=== PATIENT | female | born 1960 | race Caucasian/White ===

== ENCOUNTER 2019-06-30 12:47 | Emergency (ER) | payer MEDICAID, OTHER ==
[~2019-06-30] VITALS: Ht 165.1 cm; Wt 55.5 kg
[2019-06-30] MEDS ORDERED: HYDROcodone/acetaminophen 5mg/325mg tablet PO ONE (14:30)
[2019-06-30] MEDS ORDERED: epiNEPHrine inj 0.3 MG in BUPIVAcaine 0.5% inj/PF 29.7 ML SQ ONE (15:50)
[2019-06-30] MEDS ORDERED: MIDAZolam 5mg/ml 2ml vial IV ONE ×2 (15:50→16:05)
[2019-06-30] MEDS ORDERED: fentaNYL/PF 50MCG/1 ML 2ML syringe IV ONE ×2 (15:50→16:05)
[2019-06-30] MEDS ORDERED: BUPIVAcaine 0.5% inj/PF 30 ml vial IJ ONE (15:55)
[2019-06-30] MEDS ORDERED: HYDR-3965 PO (16:27)
[2019-06-30 16:54] VITALS: BP 160/107
== END 2019-06-30 17:09 | disposition home or self-care (01) ==
LOC: ER 12:48
DX: S52.592A Other fractures of lower end of left radius, initial encounter for closed fracture (principal); S50.312A Abrasion of left elbow, initial encounter; W22.8XXA Striking against or struck by other objects, initial encounter; Y93.89 Activity, other specified; Y92.89 Other specified places as the place of occurrence of the external cause; Y99.9 Unspecified external cause status
CPT/HCPCS: 25605; 73090; 73110; 99152; 99153; 99285; J2250; J3010

== ENCOUNTER 2019-07-16 13:12 | Day surgery (SDC) | payer SELFPAY ==
[2019-07-16] VITALS (8 sets, daily range): BP systolic 133–153; BP diastolic 81–100
[~2019-07-16] VITALS: Ht 165.1 cm; Wt 56.1 kg
[~2019-07-16 13:12] MED LIST: HYDR-3965 PO; famotidine 20mg tablet PO ONE
[2019-07-16] MEDS ORDERED: cefazolin/dext.iso 2gm/100 ML IV ONE (13:47)
[2019-07-16] MEDS ORDERED: cefazolin/dext.iso 2gm/50ml 100 ML IV ONE (13:51)
[2019-07-16] MEDS ORDERED: cefazolin/dext.iso 2gm/50ml 50 ML IV ONE (13:51)
[2019-07-16] MEDS ORDERED: BUPIVAcaine/PF 2.5 mg/ml (0.25%) 30ml vial ONE ×2 (14:19→16:03)
[2019-07-16] MEDS ORDERED: IBUP-1984 PO (14:35)
[2019-07-16] MEDS ORDERED: HYDR-4383 PO (15:24)
[2019-07-16 15:27] LABS: BASOPHILS % (AUTO) 0.6 % (0-1); EOSINOPHILS # (AUTO) 0.1 X10'3 (0-0.9); EOSINOPHILS % (AUTO) 1.9 % (0-6); HEMATOCRIT 35.5 % (35.0-45.0); HEMOGLOBIN 12.1 g/dl (12.0-16.0); LYMPHOCYTES # (AUTO) 2.3 X10'3 (1.1-4.8); MEAN CORPUSCULAR HEMOGLOBIN 33.5 PG (27.0-31.0); MEAN CORPUSCULAR VOLUME 98.5 FL (78-98); MEAN PLATELET VOLUME 7.2 FL (7.4-10.4); MONOCYTES # (AUTO) 0.7 X10'3 (0-0.9); MONOCYTES % (AUTO) 10.5 % (2-12); NEUTROPHILS # (AUTO) 3.2 X10'3 (1.8-7.7); PLATELET COUNT 327 X10'3 (140-440); WHITE BLOOD COUNT 6.3 X10'3 (4.5-11.0)
[2019-07-16 15:30] LABS: ALBUMIN 3.9 G/DL (3.4-5.0); ALBUMIN/GLOBULIN RATIO 0.9 (1.1-1.5); ALKALINE PHOSPHATASE 73 IU/L (46-116); BLOOD UREA NITROGEN 14 MG/DL (7-18); BUN/CREATININE RATIO 16.9 (6.6-38.0); CALCIUM 10.1 MG/DL (8.5-10.1); CHLORIDE 103 MMOL/L (99-107); CREATININE 0.83 MG/DL (0.40-0.90); PRE OP ALT 25 U/L (30-65); PRE OP ANION GAP 11 (8-16); PRE OP AST 27 U/L (10-37); PRE OP BILIRUB, TOTAL 0.6 MG/DL (0.0-1.0); PRE OP GLUCOSE 84 MG/DL (70-104); PRE OP POTASSIUM 4.4 MMOL/L (3.4-5.1); PRE OP SODIUM 140 MMOL/L (135-145); TOTAL CARBON DIOXIDE 25.6 MMOL/L (24-32); TOTAL PROTEIN 8.3 G/DL (6.4-8.2); eGFR 71 ML/MIN
[2019-07-16] MEDS ORDERED: ondansetron/PF 4mg/2ml inj IV PRN (15:35)
[2019-07-16] MEDS ORDERED: morphine 4 MG/ML inj SYRINge IV PRN ×2 (15:35)
[2019-07-16] MEDS ORDERED: proCHLORperazine 10 MG/2 ml inj IV PRN (15:35)
[2019-07-16] MEDS ORDERED: ringers solution, lacted 1,000 ML IV SCH (15:35)
[2019-07-16] MEDS ORDERED: meperidine/PF 25mg/ml syringe IV PRN ×3 (15:35)
[2019-07-16 15:44] LABS: PARTIAL THROMBOPLASTIN TIME 25 SECONDS (22-32)
[2019-07-16] MEDS ORDERED: midazolam 2 mg/2 ml injection ONE (16:05)
[2019-07-16] MEDS ORDERED: ROPIVAcaine 0.5% (5mg/ml) 30ml vial ONE (16:05)
[2019-07-16] MEDS ORDERED: fentaNYL/PF 50MCG/1 ML 2ML syringe ONE (16:05)
[2019-07-16] MEDS ORDERED: ketorolac trometh. 30mg/ml inj. ONE (18:18)
[2019-07-16] MEDS ORDERED: ondansetron/PF 4mg/2ml inj ONE (18:24)
--- NOTE | 2019-07-16 18:30 | NUR ---
Received from OR via BED , accompanied by Anesthesiologist DR ROSAS and report given by Anesthesiolgist. PATIENT A&OX4, DENIES PAIN, V/S WNL, NEUROVASCULAR CHECKS INTACT, 20G RUE, LEFT KNEE DRESSING CDI WITH BELDSOE BRACE ON CDI, LEFT ARM SPLINT DRESSING CDI WITH SLING CDI
--- NOTE | 2019-07-16 19:20 | NUR ---
PATIENT A&OX4, DENIES PAIN, V/S WNL, NEUROVASCULAR CHECKS INTACT, 20G RUE D/C, LEFT KNEE DRESSING CDI WITH BELDSOE BRACE LOCKED IN EXTENSION ON CDI DRESSING, LEFT ARM SPLINT DRESSING CDI WITH SLING CDI. I HAVE REVIEWED D/C INSTRUCTIONS WITH PATIENT AND FAMILY AND THEY HAVE VERBALIZED UNDERSTANDING AND PATIENT WAS D/C HOME WITH ALL BELONGIGNS AND FAMILY GAVE TRANSPORT.
[2019-07-17] MEDS ORDERED: ringers solution, lacted 1,000 ML IV SCH (05:00)
== END 2019-07-16 19:20 | disposition home or self-care (01) ==
LOC: PAS 13:12
PROVIDERS: ATTEND Orthopaedic Surgery
DX: S82.031A Displaced transverse fracture of right patella, initial encounter for closed fracture (principal); S52.532A Colles' fracture of left radius, initial encounter for closed fracture; Z72.89 Other problems related to lifestyle; Z79.01 Long term (current) use of anticoagulants; Z79.899 Other long term (current) drug therapy; G89.18 Other acute postprocedural pain; W18.49XA Other slipping, tripping and stumbling without falling, initial encounter; Y93.89 Activity, other specified; Y92.89 Other specified places as the place of occurrence of the external cause; Y99.8 Other external cause status
CPT/HCPCS: 25608; 27524; 36415; 64417; 64447; 71045; 73100; 73560; 76000; 80053; 85025; 85610; 85730; 93005; C1713; J1885; J2175; J2250; J2405; J3010; J3490; A4618; A6222; A6449; A7000; J2795; J7120

== ENCOUNTER 2020-03-09 10:19 | Emergency (ER) | payer OTHER, SELFPAY ==
[~2020-03-09] VITALS: Ht 165.1 cm; Wt 56.8 kg
[~2020-03-09 10:19] MED LIST changes: -HYDR-3965 PO; +HYDR-4383 PO; +IBUP-1984 PO; -famotidine 20mg tablet PO ONE
--- NOTE | 2020-03-09 11:43 | NUR ---
Vascular at bedside.
--- NOTE | 2020-03-09 12:01 | NUR ---
VASCULAR TA BEDSIDE ,NICKI APARICIO CAME TO EXPLAIN THE POC.PT BP HIGH THEN USUAL PT IS ANXIOUS R/T INJURY.
[2020-03-09] MEDS ORDERED: NO HOME MEDS (13:17)
[2020-03-09 14:34] VITALS: BP 161/98
[2020-03-13] MEDS ORDERED: OM3-1CAP PO (14:11)
[2020-03-13] MEDS ORDERED: VITA100D6 PO (14:11)
[2020-03-13] MEDS ORDERED: CALC600T82 PO (14:11)
[2020-03-13] MEDS ORDERED: NIAC1CAP PO (14:11)
[2020-03-13] MEDS ORDERED: MULT-1085 PO (14:11)
[2020-03-13] MEDS ORDERED: OMEG-79 PO (14:11)
[2020-03-13] MEDS ORDERED: GLUC-95 PO (14:11)
[2020-03-13] MEDS ORDERED: FOLI0.4T14 PO (14:11)
== END 2020-03-09 14:40 | disposition home or self-care (01) ==
LOC: ER 10:20
DX: S42.292A Other displaced fracture of upper end of left humerus, initial encounter for closed fracture (principal); Z98.890 Other specified postprocedural states; W18.39XA Other fall on same level, initial encounter; Y93.89 Activity, other specified; Y92.89 Other specified places as the place of occurrence of the external cause; Y99.8 Other external cause status
CPT/HCPCS: 73030; 93971; 99284

== ENCOUNTER 2020-03-14 05:30 | Day surgery (SDC) | payer OTHER ==
[2020-03-13 14:44] LABS: BASOPHILS # (AUTO) 0.1 X10'3 (0-0.2); BASOPHILS % (AUTO) 0.8 % (0-1); EOSINOPHILS # (AUTO) 0.1 X10'3 (0-0.9); EOSINOPHILS % (AUTO) 1.9 % (0-6); LYMPHOCYTES # (AUTO) 1.6 X10'3 (1.1-4.8); MEAN CORPUSCULAR HEMOGLOBIN 34.3 PG (27.0-31.0); MEAN PLATELET VOLUME 7.6 FL (7.4-10.4); MONOCYTES # (AUTO) 0.6 X10'3 (0-0.9); NEUTROPHILS # (AUTO) 5.1 X10'3 (1.8-7.7); NEUTROPHILS % (AUTO) 68.3 % (42-75); PRE OP HEMATOCRIT 34.6 % (35.0-45.0); PRE OP HEMOGLOBIN 11.8 g/dL (12.0-16.0); PRE OP PLATELET COUNT 404 X10'3 (140-440); RED BLOOD COUNT 3.43 X10'6 (4.20-5.60); RED CELL DISTRIBUTION WIDTH 13.8 % (11.5-14.5)
[2020-03-13 15:04] LABS: ALKALINE PHOSPHATASE 76 IU/L (46-116); BLOOD UREA NITROGEN 13 MG/DL (7-18); CALCIUM 9.6 MG/DL (8.5-10.1); CHLORIDE 104 MMOL/L (99-107); CREATININE 0.93 MG/DL (0.40-0.90); PRE OP ALT 27 U/L (30-65); PRE OP ANION GAP 11 (8-16); PRE OP BILIRUB, TOTAL 0.6 MG/DL (0.0-1.0); PRE OP GLUCOSE 91 MG/DL (70-104); PRE OP POTASSIUM 4.1 MMOL/L (3.4-5.1); PRE OP SODIUM 141 MMOL/L (135-145); TOTAL CARBON DIOXIDE 25.6 MMOL/L (24-32); eGFR 62 ML/MIN
[2020-03-13 15:15] LABS: PRE OP AST 28 U/L (10-37)
[2020-03-14] VITALS (9 sets, daily range): BP systolic 139–157; BP diastolic 89–100
[~2020-03-14] VITALS: Ht 165.1 cm; Wt 56.7 kg
[~2020-03-14 05:30] MED LIST changes: +CALC600T82 PO; +FOLI0.4T14 PO; +GLUC-95 PO; -HYDR-4383 PO; -IBUP-1984 PO; +MULT-1085 PO; +NIAC1CAP PO; +OM3-1CAP PO; +OMEG-79 PO; +VITA100D6 PO; +ceFAZolin 2gm in dextrose, iso 50 ML IV ONE; +famotidine 20mg tablet PO ONE; +ringers solution, lacted 1,000 ML IV SCH
[2020-03-14] MEDS ORDERED: ketorolac trometh. 30mg/ml inj. ONE (06:54)
[2020-03-14] MEDS ORDERED: ROPIVAcaine 0.5% (5mg/ml) 30ml vial ONE ×2 (06:54→07:14)
[2020-03-14] MEDS ORDERED: cloNIDine hcl/PF 100mcg/ml inj ONE (07:09)
[2020-03-14] MEDS ORDERED: sevoflurane 250ml liquid IH ONE (07:12)
[2020-03-14] MEDS ORDERED: ondansetron/PF 4mg/2ml inj ONE (07:12)
[2020-03-14] MEDS ORDERED: fentaNYL/PF 50MCG/1 ML 2ML syringe ONE (07:13)
[2020-03-14] MEDS ORDERED: midazolam 2 mg/2 ml injection ONE (07:13)
[2020-03-14] MEDS ORDERED: propofol inj 20 ML IV ONE (07:14)
[2020-03-14] MEDS ORDERED: morphine 2 MG/ML inj. syringe IV PRN (08:10)
[2020-03-14] MEDS ORDERED: proCHLORperazine 10 MG/2 ml inj IV PRN (08:10)
[2020-03-14] MEDS ORDERED: ringers solution, lacted 1,000 ML IV SCH (08:10)
[2020-03-14] MEDS ORDERED: meperidine/PF 25mg/ml syringe IV PRN ×3 (08:10)
[2020-03-14] MEDS ORDERED: morphine 4 MG/ML inj SYRINge IV PRN (08:10)
[2020-03-14] MEDS ORDERED: ondansetron/PF 4mg/2ml inj IV PRN (08:10)
[2020-03-14] MEDS ORDERED: dexamethasone sod phosphate 4mg/ml inj. ONE (09:10)
[2020-03-14] MEDS ORDERED: HYDROcodone/acetaminophen 10/325mg tab PO PRN (09:40)
--- NOTE | 2020-03-14 11:07 | NUR ---
PT UP ABLE TO AMBULATE BY SELF, TOLERATING FLUIDS, VOIDED, D/C INSTRUCTIONS GIVEN AND GONE OVER W/PT WHO VERBALIZED UNDERSTANDING. PT D/CD TO HOME VIA PRIVATE VEHICLE W/O INCIDENT. Addendum: 03/14/20 at 1132 by Alka Worthy RN Amended: Links added.
== END 2020-03-14 11:07 | disposition home or self-care (01) ==
LOC: PAS 05:30
PROVIDERS: ATTEND Orthopaedic Surgery
DX: S42.292A Other displaced fracture of upper end of left humerus, initial encounter for closed fracture (principal); G89.18 Other acute postprocedural pain; Z79.899 Other long term (current) drug therapy; Z98.41 Cataract extraction status, right eye; Z98.42 Cataract extraction status, left eye; Z98.890 Other specified postprocedural states; X58.XXXA Exposure to other specified factors, initial encounter; Y93.89 Activity, other specified; Y92.89 Other specified places as the place of occurrence of the external cause; Y99.8 Other external cause status
CPT/HCPCS: 23615; 36415; 64415; 73060; 76000; 80053; 82948; 85025; 93005; C1713; J0735; J1100; J1885; J2250; J2405; J2704; J3010; J7120; A4215; A4565; A4618; A6449; A7000; J2795

== ENCOUNTER 2020-05-16 23:38 | Emergency (ER) | payer SELFPAY ==
[~2020-05-16] VITALS: Ht 165.1 cm; Wt 54.5 kg
[~2020-05-16 23:38] MED LIST changes: -ceFAZolin 2gm in dextrose, iso 50 ML IV ONE; -famotidine 20mg tablet PO ONE; -ringers solution, lacted 1,000 ML IV SCH
[2020-05-16] MEDS ORDERED: TETanus/Pertussis (Acell)/Diphther VAC/PF (Tdap-Adult) 0.5ml syringe IMVAC ONE (23:50)
[2020-05-16] MEDS ORDERED: LIDOcaine 1% W/epiNEPHrine 1:200,000 10ml vial IJ ONE (23:50)
[2020-05-17 00:29] LABS: BASOPHILS # (AUTO) 0.1 X10'3 (0-0.2); BASOPHILS % (AUTO) 1.3 % (0-1); EOSINOPHILS # (AUTO) 0.2 X10'3 (0-0.9); EOSINOPHILS % (AUTO) 3.2 % (0-6); HEMATOCRIT 33.9 % (35.0-45.0); HEMOGLOBIN 11.5 g/dl (12.0-16.0); LYMPHOCYTES % (AUTO) 50.7 % (21-51); MEAN CORPUSCULAR HEMOGLOBIN 34.5 PG (27.0-31.0); MEAN CORPUSCULAR HGB CONC 33.9 g/dL (33.0-36.5); MEAN CORPUSCULAR VOLUME 101.8 FL (78-98); MEAN PLATELET VOLUME 7.3 FL (7.4-10.4); MONOCYTES % (AUTO) 17.4 % (2-12); NEUTROPHILS # (AUTO) 1.6 X10'3 (1.8-7.7); NEUTROPHILS % (AUTO) 27.4 % (42-75); PLATELET COUNT 282 X10'3 (140-440); RED BLOOD COUNT 3.33 X10'6 (4.20-5.60); RED CELL DISTRIBUTION WIDTH 14.3 % (11.5-14.5); WHITE BLOOD COUNT 5.8 X10'3 (4.5-11.0)
[2020-05-17 00:41] LABS: PARTIAL THROMBOPLASTIN TIME 25 SECONDS (22-32)
[2020-05-17 00:44] LABS: ALANINE AMINOTRANSFERASE 67 U/L (12-78); ALBUMIN 3.7 G/DL (3.4-5.0); ALKALINE PHOSPHATASE 98 IU/L (46-116); ANION GAP 8 (8-16); ASPARTATE AMINO TRANSFERASE 68 U/L (10-37); BILIRUBIN,TOTAL 0.3 MG/DL (0.1-1.0); BLOOD UREA NITROGEN 10 MG/DL (7-18); BUN/CREATININE RATIO 12.8 (6.6-38.0); CALCIUM 9.5 MG/DL (8.5-10.1); CHLORIDE 101 MMOL/L (99-107); CREATININE 0.78 MG/DL (0.40-0.90); GLUCOSE 106 MG/DL (70-104); POTASSIUM 3.8 MMOL/L (3.5-5.1); SODIUM 137 MMOL/L (135-145); TOTAL CARBON DIOXIDE 27.6 MMOL/L (24-32); TOTAL PROTEIN 7.3 G/DL (6.4-8.2); eGFR 76 ML/MIN
[2020-05-17 00:52] LABS: PLATELET ESTIMATE NORMAL; TOTAL CELLS COUNTED 100
[2020-05-17 01:06] LABS: ETHANOL 0.312 GM/DL (0.0-0.010)
[2020-05-17 01:44] VITALS: BP 122/72
== END 2020-05-17 01:47 | disposition home or self-care (01) ==
LOC: ER 23:38
DX: S01.01XA Laceration without foreign body of scalp, initial encounter (principal); S09.90XA Unspecified injury of head, initial encounter; S16.1XXA Strain of muscle, fascia and tendon at neck level, initial encounter; F10.129 Alcohol abuse with intoxication, unspecified; Z98.890 Other specified postprocedural states; Z79.899 Other long term (current) drug therapy; Y90.9 Presence of alcohol in blood, level not specified
CPT/HCPCS: 12002; 70450; 72125; 80053; 80320; 85007; 85025; 85610; 85730; 90471; 90715; 99285